=== PATIENT | male | born 1995 | race Caucasian/White ===

== ENCOUNTER 2020-06-07 00:23 | Emergency (ER) | payer SELFPAY ==
[~2020-06-07] VITALS: Ht 160 cm; Wt 70.3 kg
[2020-06-07 00:35] VITALS: BP 114/65
[2020-06-07 01:34] VITALS: BP 114/65
== END 2020-06-07 01:34 | disposition home or self-care (01) ==
LOC: MED 00:23
DX: S50.862A Insect bite (nonvenomous) of left forearm, initial encounter (principal); F41.9 Anxiety disorder, unspecified; Y84.0 Cardiac catheterization as the cause of abnormal reaction of the patient, or of later complication, without mention of misadventure at the time of the procedure; Z88.0 Allergy status to penicillin; Z88.1 Allergy status to other antibiotic agents; W57.XXXA Bitten or stung by nonvenomous insect and other nonvenomous arthropods, initial encounter; Y93.89 Activity, other specified; Y92.89 Other specified places as the place of occurrence of the external cause; Y99.8 Other external cause status
CPT/HCPCS: 99283